=== PATIENT | male | born 1995 | race Two or more races ===

== ENCOUNTER 2018-04-02 23:04 | Emergency (ER) | payer OTHER ==
[2018-04-02] MEDS ORDERED: Acetaminophen TAB* 325 MG PO ONE (23:58)
[2018-04-03 00:10] LABS: ABS Basophils 0 10^3/ul (0-0.2); ABS Eosinophils 0.2 10^3/ul (0-0.6); ABS Lymphocytes 0.3 10^3/ul (1.0-4.8); ABS Monocytes 0.7 10^3/ul (0-0.8); ABS Neutrophils 6.5 10^3/ul (1.5-7.7); ABS Nucleated RBC 0 10^3/ul; Eosinophil % 2.4 % (0-6); Hematocrit 44 % (42-52); Hemoglobin 15.6 g/dl (14.0-18.0); Lymphocyte % 3.8 % (25-47); Mean Corpuscular HGB Conc 35 g/dl (31-36); Mean Corpuscular Hemoglobin 30 pg (27-31); Mean Corpuscular Volume 85 fL (80-94); Mean Platelet Volume 7.1 um3 (7.4-10.4); Nucleated Red Blood Cells % 0.2; Platelet Count 221 10^3/ul (150-450); Red Blood Count 5.17 10^6/ul (4.0-5.4); Red Cell Distribution Width 13 % (10.5-15); White Blood Count 7.6 10^3/ul (3.5-10.8)
[2018-04-03 00:25] LABS: EGFR Non-African American 95.3 (>60)
--- NOTE | 2018-04-03 00:28 | ED ---
Throat Pain/Nasal Congestion - HPI Summary HPI Summary: 22-year-old male presents with throat and sinus congestion for the past 2 days. He also admits to occasional cough. He denies any bowel pain. No nausea no vomiting. He denies any headache. He admits to a fever. He has been taking DayQuil and Jaelyn. He states that today he had what he describes as a panic attack. He states he felt numbness and tingling in his hand. He states that his hands locked up. He called EMS but this resolved. He also states that he feels like his heart is racing. He states there is feeling better now that he has at the hospital. He denies any chest pain or shortness of breath. No family history of blood clots. No recent travel. He admits to generalized body aches. - History of Current Complaint Chief Complaint: EDUpperRespComplaint Time Seen by Provider: 04/02/18 23:33 - Allergies/Home Medications Allergies/Adverse Reactions: Allergies Allergy/AdvReac Type Severity Reaction Status Date / Time ibuprofen Allergy Swelling Verified 04/03/18 00:08 Of Face,Lips,& Throat Home Medications: Home Medications Albuterol inh POWDER (NF) [Proair Respiclick] 1 puff INH Q4H PRN 04/03/18 [ History Confirmed 04/03/18] Fexofenadine (NF) [Jaelyn (NF)] 60 mg PO DAILY PRN 04/03/18 [History Confirmed 04/03/18] PMH/Surg Hx/FS Hx/Imm Hx Endocrine/Hematology History: Denies: Hx Anticoagulant Therapy Respiratory History: Denies: Hx Asthma Infectious Disease History: No Infectious Disease History: Denies: Traveled Outside the [place] in Last 30 Days - Family History Known Family History: Positive: Respiratory Disease Negative: Blood Disorder - Social History Substance Use Type: Reports: None Smoking Status (MU): Never Smoked Tobacco Review of Systems Positive: Fever Positive: Sore Throat, Nasal Discharge Negative: Chest Pain Positive: Cough. Negative: Shortness Of Breath Negative: Abdominal Pain All Other Systems Reviewed And Are Negative: Yes Physical Exam Triage Information Reviewed: Yes Vital Signs On Initial Exam: Initial Vitals Temp Pulse Resp BP Pulse Ox 100.4 F 117 20 132/70 100 04/02/18 23:05 04/02/18 23:05 04/02/18 23:05 04/02/18 23:05 04/02/18 23:05 Vital Signs Reviewed: Yes Appearance: Positive: Well-Appearing Skin: Positive: Warm, Dry Head/Face: Positive: Normal Head/Face Inspection Eyes: Positive: Normal, EOMI, CONNOR, Conjunctiva Clear ENT: Positive: Pharyngeal erythema, TMs normal, Uvula midline, Other - soft palate symmetric. Negative: Tonsillar swelling Neck: Positive: Nontender, No Lymphadenopathy Respiratory/Lung Sounds: Positive: Clear to Auscultation, Breath Sounds Present Cardiovascular: Positive: Normal, RRR Abdomen Description: Positive: Nontender, Soft Bowel Sounds: Positive: Present Musculoskeletal: Positive: Normal Neurological: Positive: Normal Psychiatric: Positive: Normal Diagnostics - Vital Signs Vital Signs Temp Pulse Resp BP Pulse Ox 04/02/18 23:05 100.4 F 117 20 132/70 100 - Laboratory Lab Results: Lab Results 04/03/18 Range/Units 00:00 WBC 7.6 (3.5-10.8) 10^3/ul RBC 5.17 (4.0-5.4) 10^6/ul Hgb 15.6 (14.0-18.0) g/dl Hct 44 (42-52) % MCV 85 (80-94) fL MCH 30 (27-31) pg MCHC 35 (31-36) g/dl RDW 13 (10.5-15) % Plt Count 221 (150-450) 10^3/ul MPV 7.1 L (7.4-10.4) um3 Neut % (Auto) 84.8 H (38-83) % Lymph % (Auto) 3.8 L (25-47) % Pickett % (Auto) 8.6 H (0-7) % Eos % (Auto) 2.4 (0-6) % Baso % (Auto) 0.4 (0-2) % Absolute Neuts (auto) 6.5 (1.5-7.7) 10^3/ul Absolute Lymphs (auto) 0.3 L (1.0-4.8) 10^3/ul Absolute Monos (auto) 0.7 (0-0.8) 10^3/ul Absolute Eos (auto) 0.2 (0-0.6) 10^3/ul Absolute Basos (auto) 0 (0-0.2) 10^3/ul Absolute Nucleated RBC 0 10^3/ul Nucleated RBC % 0.2 Result Diagrams: 04/03/18 00:00 04/03/18 00:00 Lab Statement: Any lab studies that have been ordered have been reviewed, and results considered in the medical decision making process. Re-Evaluation - Re-Evaluation First Eval Re-Evaluation Time: 01:05 Change: Improved Comment: less anxious EENT Course/Dx - Course Course Of Treatment: 22-year-old male presents with throat and sinus congestion for the past 2 days. He also admits to occasional cough. He denies any bowel pain. No nausea no vomiting. He denies any headache. He admits to a fever. He has been taking DayQuil and Jaelyn. He states that today he had what he describes as a panic attack. He states he felt numbness and tingling in his hand. He states that his hands locked up. He called EMS but this resolved. He also states that he feels like his heart is racing. He states there is feeling better now that he has at the hospital. He denies any chest pain or shortness of breath. No family history of blood clots. No recent travel. He admits to generalized body aches. On exam pharynx erythematous. Uvula midline. Soft palate symmetric. Lungs clear to auscultation. Abdomen soft nontender. Patient appears anxious. wbc normal. potassium and mg low so will supplement. gave tyenlol and patient feeling better. flu and strep neg. will treat with flonase. patient understand and agrees with plan. - Differential Diagnoses Differential Diagnoses: Pharyngitis, Sinusitis, URI/Bronchitis - Diagnoses Provider Diagnoses: Upper respiratory infection Discharge - Sign-Out/Discharge Documenting (check all that apply): Discharge/Admit/Transfer - Discharge Plan Condition: Good Disposition: HOME Prescriptions: Fluticasone NASAL SPRAY 50MCG* [Flonase NASAL SPRAY 50MCG*] 2 spray BOTH NARES DAILY #1 btl Patient Education Materials: Upper Respiratory Infection (ED) Referrals: [facility] [place] - Lang ROQUE [Primary Care Provider] - Additional Instructions: Use saline spray in nose as much as needed Use intranasal steroid one spray each nostril twice a day Take Tylenol for fever every 6 hours Follow up with primary in 5 days if no improvement Return to ED if develop any new or worsening symptoms - Billing Disposition and Condition Condition: GOOD Disposition: HOME
[2018-04-03] MEDS ORDERED: Magnesium Oxide TAB* 400 MG PO ONE (00:38)
[2018-04-03] MEDS ORDERED: Potassium Chlor TAB* 10 MEQ TAB.ER PO ONE (00:38)
[2018-04-03 01:06] VITALS: BP 128/75
== END 2018-04-03 01:01 | disposition home or self-care (01) ==
LOC: ED 23:04
DX: J06.9 Acute upper respiratory infection, unspecified (principal); J02.9 Acute pharyngitis, unspecified; R05 Cough
CPT/HCPCS: 36415; 80053; 83735; 85025; 87502; 87651; 99282; A9270-GY